=== PATIENT | male | born 1960 | race Caucasian/White ===

== ENCOUNTER 2023-05-29 10:13 | Outpatient (AMB) | payer BC, SELFPAY ==
--- NOTE | 2023-05-29 10:40 | MHC.OFFWIV ---
Intake Vital Signs 05/29/23 11:00 Height 5 ft 8 in Weight 202 lb BMI 30.7 BP 124/90 H Blood Pressure Location Lt brachial Position Sitting Pulse 86 Pulse Source Pulse Oximeter Temp 97.9 F Temp Source Temporal Artery Scan Pulse Oximetry (%) 98 Oxygen Delivery Method Room Air Intake Visit Reasons: EP RT ear [id number] Intake Note: pt is here today for ear blocked started yesterday Patient Tobacco Use Status: Current everyday Tobacco user Allergies No Known Allergies Allergy (Verified 05/29/23 10:41) Do you need a note to return to daycare/school/sports/work: Yes HPI EP RT ear [id number] HPI Details This is a 62-year-old male patient who presents today with a sensation of right blocked ear x2 days. Denies any pain, fever, chills, or sick symptoms. Has been using some wax-softening drops. [facility] Social History Patient Tobacco Use Status: Current everyday Tobacco user Review of Systems Const All systems reviewed & are unremarkable except as noted in HPI and below Physical Exam Const General: cooperative, healthy appearing and no acute distress HEENT Head: Yes normal to inspection Ears: hearing grossly normal bilaterally and unable to visualize TM (cerumen impaction) bilaterally General nose exam: Normal external nose present and Normal nasal mucous membranes and turbinates present Neck Neck: Yes no lymphadenopathy Resp Effort & Inspection: normal respiratory effort and able to speak in complete sentences Skin General skin exam: no rashes or lesions noted Extrem General: Yes no clubbing, cyanosis or edema Psych Appearance: grossly normal Mental Status: mental status grossly normal Speech and movement: Normal speech and movement present Office Procedures Cerumen Removal From which ear canal was the cerumen removed: bilateral Removal: irrigation and cerumen loop/spoon Notes: patient tolerated procedure well, no complications and ear canal clear [id number] Irrigation/Lavage Assessment & Plan Assessment & Plan (1) Bilateral impacted cerumen: Code(s): H61.23 - Impacted cerumen, bilateral Plan: Irrigation of bilateral ears done in the office with good effect. Large amount of cerumen removed and patient tolerated this well. TMs normal. Still a small amount of soft wax in left ear canal. Advised he continue to utilize Debrox drops as needed, and return to the clinic as needed for any recurrence of cerumen impaction. He verbalizes understanding and agrees to plan. Coding Level of Care Code Est Pt Level 3 (05638) Diagnoses Bilateral impacted cerumen H61.23 CPT Codes Office Procedure - CPT: 67411-Wcm Irrigation/Lavage ([id number])
[2023-05-29 11:00] VITALS: BP 124/90; PULSE 86; TEMP 36.6; O2SAT 98; BMI 30.7
== END 2023-05-29 11:29 | disposition home or self-care (01) ==
PROVIDERS: Visit Provider Nurse Practitioner Family
DX: H61.23 Impacted cerumen, bilateral (principal)
CPT/HCPCS: 69209; 99213

== ENCOUNTER 2023-08-06 10:57 | Outpatient (AMB) | payer BC, SELFPAY ==
--- NOTE | 2023-08-06 11:06 | AM.OFFWIN_ITS ---
Intake Vital Signs 08/06/23 11:07 Height 5 ft 8 in Weight 195 lb BMI 29.6 BP 114/70 Blood Pressure Location Lt brachial Position Sitting Pulse 94 Pulse Source Pulse Oximeter Temp 97.6 F Temp Source Temporal Artery Scan Pulse Oximetry (%) 100 Oxygen Delivery Method Room Air Intake Visit Reasons: EP Flu like symptoms Intake Note: pt is here today for flu like symptoms started friday Patient Tobacco Use Status: Current everyday Tobacco user Allergies No Known Allergies Allergy (Verified 08/06/23 11:10) Do you need a note to return to daycare/school/sports/work: Yes HPI HPI Comments History of Present Illness Details 62 y/o male patient who presents to walk in clinic with c/o URI symptoms since Friday. Girlfriend with similar symptoms. [facility] Social History Patient Tobacco Use Status: Current everyday Tobacco user Review of Systems Const All systems reviewed & are unremarkable except as noted in HPI and below Physical Exam Vital Signs: Last Vital Signs Temp 97.6 F 08/06/23 11:07 Pulse 94 08/06/23 11:07 BP 114/70 08/06/23 11:07 Pulse Ox 100 08/06/23 11:07 Oxygen Delivery Method Room Air 08/06/23 11:07 BMI result Body Mass Index 29.6 Const General: comfortable and no acute distress Orientation/consciousness: patient oriented x3 HEENT Head: Yes normocephalic Ears: external ears normal and TM's normal bilaterally General nose exam: Normal nasal mucous membranes and turbinates present and No nasal discharge present Face and sinus: Yes sinuses nontender Mouth: moist mucous membranes Throat: Yes posterior oropharynx normal Resp Effort & Inspection: normal respiratory effort, able to speak in complete sentences and no cough Auscultation: clear to auscultation bilaterally, no crackles, no rales, no rhonchi and no wheezes Cardio Rate: regular rate Rhythm: regular rhythm Neuro General: patient oriented x3 Assessment & Plan Assessment & Plan (1) Upper respiratory infection: Code(s): J06.9 - Acute upper respiratory infection, unspecified Qualifiers: URI type: acute nasopharyngitis (common cold) Qualified Code(s): J00 - Acute nasopharyngitis [common cold] Plan: - OTC cold remedies - REst and hydrate well - Acetaminophen for pain relief - SARs Plan - OTC cold remedies - REst and hydrate well - Acetaminophen for pain relief - SARs Orders: Orders SARS-CoV2/FLU/RSV Today R09.89 - Other specified symptoms and signs involving the circulatory and respiratory systems Coding Level of Care Code Est Pt Level 3 (27101) Diagnoses Acute nasopharyngitis J00 URI type: acute nasopharyngitis (common cold) Time Spent (min) 15
[2023-08-06 11:07] VITALS: BP 114/70; PULSE 94; TEMP 36.4; O2SAT 100; BMI 29.6
== END 2023-08-06 12:02 | disposition home or self-care (01) ==
PROVIDERS: Visit Provider Nurse Practitioner Family
DX: J00 Acute nasopharyngitis [common cold] (principal)
CPT/HCPCS: 99213

== ENCOUNTER 2023-08-06 11:25 | Outpatient (REF) | payer BC, SELFPAY ==
[2023-08-06 14:34] LABS: Influenza A PCR NEGATIVE (Negative); Influenza B PCR NEGATIVE (Negative); Resp Syncy Virus RNA Qual PCR NEGATIVE (Negative); SARS COV2 PCR INHOUSE NEGATIVE (Negative)
== END 2023-08-06 11:26 | disposition home or self-care (01) ==
LOC: HO.LAB 11:25
PROVIDERS: Visit Provider Nurse Practitioner Family
DX: R09.89 Other specified symptoms and signs involving the circulatory and respiratory systems (principal)
CPT/HCPCS: 0241U

== ENCOUNTER 2024-03-19 10:48 | Outpatient (AMB) | payer BC, SELFPAY ==
--- NOTE | 2024-03-19 10:51 | AM.OFFWIN_ITS ---
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 He tells me he was shoveling asphalt 2 days ago and that is when the pain started, he said he twisted a certain way and he felt a pain. He states when he twists that way right now, he can feel the pain again. He denies any sharp shooting pains are radiation of the pain into his buttock or his leg. He states it is just like a dull aching pain in 1 particular spot in his low back. He denies any loss of control of his bladder or bowels. [facility] Social History Patient Tobacco Use Status: Current everyday Tobacco user Review of Systems Const All systems reviewed & are unremarkable except as noted in HPI and below Physical Exam Vital Signs: Last Vital Signs Pulse 82 03/19/24 10:53 BP 118/80 03/19/24 10:53 Pulse Ox 98 03/19/24 10:53 BMI result Body Mass Index 29.6 Const General: cooperative, healthy appearing and comfortable Orientation/consciousness: patient oriented x3 HEENT Head: Yes normal to inspection and Yes normocephalic General nose exam: Normal external nose present Face and sinus: Yes normal facial exam Eyes General: appearance normal, both eyes and all related structures Resp Effort & Inspection: normal respiratory effort and able to speak in complete sentences General: Yes no CVA tenderness Back/Spine/Pelvis Back: no CVA tenderness Cervical Spine: cervical ROM normal and No Cervical spine tenderness Thoracic/Lumbar Spine: thoracic and lumbar spine normal to inspection, pain with thoraco-lumbar ROM, paraspinal muscle tenderness on the left in the lower thoracic and in the upper thoracic, No thoracic spinal tenderness and No lumbar spinal tenderness Neuro General: patient oriented x3 Extrem Other: Straight leg raise test negative on right; Straight leg raise test negative on left; Reflexes normal ankle and knee bilaterally; motor strength normal bilaterally Assessment & Plan Assessment & Plan (1) Low back strain: Code(s): S39.012A - Strain of muscle, fascia and tendon of lower back, initial encounter Qualifiers: Encounter type: initial encounter Qualified Code(s): S39.012A - Strain of muscle, fascia and tendon of lower back, initial encounter Plan: Recommended taking meloxicam daily for the next 4 or 5 days and cyclobenzaprine at night, gave precautions not to operate a motor vehicle or drink alcohol while taking cyclobenzaprine. Can use ice, heat, Salonpas or Voltaren gel as well. Recommended if pain does not improved follow up with his PCP. Wrote work note for yesterday and today. Plan See above Medications: New cyclobenzaprine 5 mg PO Q8H PRN 10 tabs 0RF Muscle Spasm meloxicam 15 mg PO DAILY 10 tabs 0RF Coding Level of Care Code New Pt Level 3 (35959) Diagnoses Strain of lumbar region, initial encounter S39.012A Encounter type: initial encounter
[2024-03-19 10:53] VITALS: BP 118/80; PULSE 82; O2SAT 98; BMI 29.6
== END 2024-03-19 11:30 | disposition home or self-care (01) ==
PROVIDERS: Visit Provider Physician Assistant
DX: S39.012A Strain of muscle, fascia and tendon of lower back, initial encounter (principal)